=== PATIENT | male | born 1955 | race Caucasian/White ===

== ENCOUNTER 2017-08-29 14:14 | Emergency (ER) | payer MEDICAID ==
[~2017-08-29] VITALS: Ht 172.7 cm; Wt 65.9 kg
[2017-08-29 14:25] VITALS: BP 111/74
[2017-08-29] MEDS ORDERED: DIPH,PERTUSS(ACELL),TET VAC/PF 0.5 ML IM-VACC ONE ×2 (14:30→15:02)
== END 2017-08-29 16:14 | disposition home or self-care (01) ==
LOC: ED 16:00
DX: L03.116 Cellulitis of left lower limb (principal); K21.9 Gastro-esophageal reflux disease without esophagitis
CPT/HCPCS: 29515; 90471; 90715